=== PATIENT | male | born 1980 | race Caucasian/White ===

== ENCOUNTER 2021-01-28 14:52 | Emergency (ER) | payer OTHER ==
[~2021-01-28] VITALS: Ht 180.3 cm; Wt 78.9 kg
[2021-01-28] MEDS ORDERED: NOHOMEMEDICATIONS (15:11)
[2021-01-28 15:50] LABS: ABSOLUTE LYMPHOCYTES 1.4 thou/uL (0.8-5.3); ABSOLUTE MONOCYTES 0.7 thou/uL (0.0-1.2); ABSOLUTE NEUTROPHILS 4.7 thou/uL (1.6-8.1); BASOPHILS 0.6 %; EOSINOPHILS 0.4 %; HEMATOCRIT 42.9 % (42.0-52.0); HEMOGLOBIN 15.3 gm/dL (14.0-18.0); LYMPHOCYTES 20.5 %; MCH 36.3 pg (26.0-34.0); MCHC 35.6 g/dL (28.0-37.0); MCV 101.8 fL (80.0-100.0); MONOCYTES 9.8 %; MPV 6.3 fl. (7.2-11.1); NUCLEATED RBCS 0 /100WBC; PLATELET COUNT* 209 thou/uL (150-400); POLYS 68.7 %; RBC 4.21 mil/uL (4.50-6.00); RDW-CV 16.1 % (10.5-14.5); WBC 6.9 thou/uL (4.0-11.0)
[2021-01-28 16:02] LABS: CALCIUM 8.2 mg/dL (8.5-10.1); CREATININE 0.9 mg/dL (0.6-1.3)
[2021-01-28 16:05] LABS: POTASSIUM 2.6 mmol/L (3.5-5.1)
[2021-01-28 16:08] LABS: ALBUMIN 2.8 g/dL (3.4-5.0); TOTAL BILIRUBIN 1.2 mg/dL (<0.1-1.0); TOTAL PROTEIN 6.2 g/dL (6.4-8.2)
[2021-01-28 16:47] VITALS: BP 144/94
--- NOTE | 2021-01-29 11:45 | EKG ---
[place] [address] ELECTROCARDIOGRAM REPORT Name: MESFIN GUZMÁN Room: [facility]#: [id number] Admission: 01/28/21 Attend Phys: Discharge: 01/28/21 Date of : 78 Date of Service: 01/28/21 1554 Report #: [id number] THIS REPORT FOR: //name// [facility] ED Test Date: 2021-01-28 Test Time: 15:54:22 Pat Name: MESFIN GUZMÁN Department: Room: Gender: [employer]: : 1980 Requested By: Enrike Muro Order Number: [id number] MD: Gm Kiser Measurements Intervals [place] Rate: 90 P: 44 [place]: 143 QRS: 10 QRSD: 96 T: QT: 407 QTc: 498 Interpretive Statements Sinus rhythm Borderline repolarization abnormality Borderline prolonged QT interval No previous ECG available for comparison Electronically Signed On 01-29-2021 11:45:38 CDT by Gm Kiser [email or web address] <ELECTRONICALLY SIGNED> By: Gm Kiser MD, [facility] 01/29/21 1145 1554 1554 Gm Kiser MD, [facility] /EPI
== END 2021-01-28 16:48 | disposition home or self-care (01) ==
LOC: M.ERS 14:52
PROVIDERS: Family Medicine
DX: R60.0 Localized edema (principal); F17.210 Nicotine dependence, cigarettes, uncomplicated

== ENCOUNTER → 2021-08-14 | Outpatient (CLI) | payer OTHER ==
[~2021-08-14] MED LIST: NOHOMEMEDICATIONS
== END ==
LOC: M.ULTRA 10:19
PROVIDERS: ATTEND Family Medicine
DX: K76.0 Fatty (change of) liver, not elsewhere classified (principal); R74.8 Abnormal levels of other serum enzymes